=== PATIENT | male | born 1950 ===

== ENCOUNTER 2021-10-25 20:46 | Emergency (ER) | payer MEDICARE, BC ==
[~2021-10-25] VITALS: Ht 182.9 cm; Wt 83.9 kg
[2021-10-25 20:51] VITALS: BP 161/90
== END 2021-10-26 04:20 | disposition left against medical advice (07) ==
LOC: EDBD 20:46 → ER 20:46
DX: R07.89 Other chest pain (principal); R11.2 Nausea with vomiting, unspecified; R51.9 Headache, unspecified; Z53.29 Procedure and treatment not carried out because of patient's decision for other reasons
CPT/HCPCS: 71046; 93005; 99283; J7030